=== PATIENT | female | born 1960 | race Hispanic/Latino ===

== ENCOUNTER → 2018-12-02 | Outpatient (CLI) | payer OTHER ==
[~2018-12-02] MED LIST: LEVOTHYROXINE25 MCG PO
--- NOTE | 2018-12-02 16:30 | Diagnostic Imaging Report ---
Neck ultrasound. History: Neck fullness, prior sternotomy. Comparison: None available. Discussion: Transverse and longitudinal sonographic images of the neck were obtained. There is no evidence of residual thyroid tissue, cyst, or solid mass. There is no adenopathy. IMPRESSION: No abnormality identified. Signed by: Amos Park on 12/02/2018 4:26 PM
--- NOTE | 2018-12-02 16:39 | Diagnostic Imaging Report ---
Exam: Bone mineral density study. History: 58-year-old female. Comparison: None available. Discussion: Evaluation of the left hip and lumbar spine was performed utilizing DEXA Hologic bone densitometer. The study is technically adequate. The patient's fracture risk is compared to an age-matched control. Left femoral neck bone mineral density: 0.673 g/cm2, T-score is -1.7, Z-score is -0.5. No previous comparison. Lumbar spine total bone mineral density: 0.843 gm/cm2, T-score is -1.9, Z-score is -0.6. No previous comparison. Impression: Bone mineralization by WHO Classification using T score is osteopenic, fracture risk is moderate. 10 year major osteoporotic fracture risk is 3.9 %. <T score: NL = -1 or higher Osteopenia = -1 to -2.5 Osteoporosis = -2.5 or lower Z score: < - 1.5 concerning for path> Recommendations: Medical evaluation for secondary causes of low bone mineral density may be appropriate. Correlate clinically for the necessity and timing of the next bone mineral density study. National Osteoporosis Foundation recommendations: Initiate therapy to reduce fracture risk in postmenopausal women with -BMD t-scores below -2 by central DXA with no risk factors -BMD t-scores below -1.5 by central DXA with one or more risk factors (first deg relative with hip fracture, prior personal fracture, low body weight, smoking) -A prior vertebral or hip fracture AACE (Clinical Endocrinology) recommends treating the following: Postmenopausal women who have osteoporosis as diagnosed by fragility fractures or t scores -2.5 or below Postmenopausal women who have risk factors (including fh of hip fracture, low body weight, smoking, risk of falling, high bone turnover, advancing age) and borderline low BMD T scores of -1.5 or below Adequate intake of calcium (at least 1200mg/day) and vitamin D (400-800 IU/day). Regular weight bearing and muscle - strengthening exercises Avoid smoking and excessive alcohol Signed by: Amos Park on 12/02/2018 4:36 PM
== END ==
LOC: MAMMO 13:53
PROVIDERS: ATTEND Family Medicine
DX: R22.1 Localized swelling, mass and lump, neck (principal)
CPT/HCPCS: 76536; 77067; 77080

== ENCOUNTER 2019-10-11 17:00 | Emergency (ER) | payer OTHER ==
[~2019-10-11] VITALS: Ht 154.9 cm; Wt 49.9 kg
[2019-10-11] MEDS ORDERED: SODIUM CHLORIDE FLUSH 10 ML SYR INJ PRN (17:15)
--- OUTSIDE RECORDS SUMMARY | 2019-10-11 17:38 | XMS REPORT | Continuity of Care Document ---
Author Author [facility] t Organization [facility] Address [address] [place] [address] Phone Unavailable Care Team Providers Care Cement Tester Assistant Name Role Phone SULTANA CHAVEZ Unavailable Payers Payer Name Policy Type Policy Number Effective Date Expiration Date S ource Problems This patient has no known problems. Allergies, Adverse Reactions, Alerts This patient has no known allergies or adverse reactions. Medications This patient has no known medications. Procedures This patient has no known procedures. Results Test Description Test Time Test Comments Results Result Comments Source - XR ABD ACUTE W/CHEST 2019-01-29 15:46:00 Patie nt Name: DEMI NAQVI Unit No: [id number] EXAMS: CPT CODE: [id number] XR ABD ACUTE W/CHEST 32091 Indication: K59.00/CONSTIPATION Comparison: None. Location: W1 UPRIGHT AP CHEST: The heart size is normal with a mildly elongated aorta. The lungs are grossly clear. No acute infiltrates or pleural effusions are visible. Bones intact. No free air seen. There are postsurgical changes along the lower neck. FLAT AND UPRIGHT ABDOMEN: Bowel gas pattern is unremarkable. Fecal retention is seen throughout the colon. No dilated loops of small bowel visible. No suspicious air-fluid levels seen. No pathologic calcifications or significant osseous lesions visible. No masses detected. No radiopaque from body seen. IMPRESSION: 1. Constipation. 2. No acute cardiopulmonary findings seen. 3. Normal bowel gas pattern. at 154 Reported and signed by: Hernesto Gillis MD CC: Live Worley MD Technologist: Lina Delgado Trscr Dt/Tm: 01/29/2019 (1546) by:[email or web address] Printed Date/Time: 01/29/2019 (2022) Name: DEMI NAQVI [facility] OP Imaging Phys: COLRO.Navya - Live Worley MD : 1960 Age: 59 Sex: F [place] Loc: P.RAD Exam Date: 01/29/2019 Status: REG CLI PH: FAX: PAGE 1 Signed Report BONE DXA DUAL ENERGY 2018-12-02 16:35:00 [place] [address] Patient Name: DEMI NAQVI MR #: [id number] : 1960 Age/Sex: 58/F Req #: [id number] Adm Physician: Ordered by: SULTANA CHAVEZ DO Report #: [id number] Location: [facility] Room/Bed: Procedure: [id number] DX/BONE DXA DUAL ENERGY Exam Date: Exam Time: REPORT STATUS: Signed Exam: Bone mineral density study. History: 58-year-old female. Comparison: None available. Discussion: Evaluation of the left hip and lumbar spine was performed utilizing DEXA Hologic bone densitometer. The study is technically adequate. The patient's fracture risk is compared to an age-matched control. Left femoral neck bone mineral density: 0.673 g/cm2, T-score is -1.7, Z-score is -0.5. No previous comparison. Lumbar spine total bone mineral density: 0.843 gm/cm2, T-score is -1.9, Z-score is -0.6. No previous comparison. Impression: Bone mineralization by WHO Classification using T score is osteopenic, fracture risk is moderate. 10 year major osteoporotic fracture risk is 3.9 %. <T score: NL = -1 or higher Osteopenia = -1 to -2.5 Osteoporosis = -2.5 or lower Z score: < - 1.5 concerning for path> Recommendations: Medical evaluation for secondary causes of low bone mineral density may be appropriate. Correlate clinically for the necessity and timing of the next bone mineral density study. National Osteoporosis Foundation recommendations: Initiate therapy to reduce fracture risk in postmenopausal women with -BMD t-scores below -2 by central DXA with no risk factors -BMD t-scores below -1.5 by central DXA with one or more risk factors (first deg relative with hip fracture, prior personal fracture, low body weight, smoking) -A prior vertebral or hip fracture AACE (Clinical Endocrinology) recommends treating the following: Postmenopausal women who have osteoporosis as diagnosed by fragility fractures or t scores -2.5 or below Postmenopausal women who have risk factors (including fh of hip fracture, low body weight, smoking, risk of falling, high bone turnover, advancing age) and borderline low BMD T scores of -1.5 or below Adequate intake of calcium (at least 1200mg/day) and vitamin D (400-800 IU/day). Regular weight bearing and muscle - strengthening exercises Avoid smoking and excessive alcohol Signed by: Amos Park on 12/02/2018 4:36 PM Dictated By: AMOS PARK MD 1636 Transcribed By: AISSATOU on 12/02/18 1636 COPY TO: SULTANA CHAVEZ DO THYROID 2018-12-02 16:26:00 [place] [address] Patient Name: DEMI NAQVI MR #: [id number] : 1960 Age/Sex: 58/F Req #: [id number] [facility] [place]: Ordered by: SULTANA CHAVEZ DO Report #: [id number] Location: [facility] Room/Bed: Procedure: [id number] US/US THYROID Exam Date: 12/02/18 Exam Time: 1441 REPORT STATUS: Signed Neck ultrasound. History: Neck fullness, prior sternotomy. Comparison: None available. Discussion: Transverse and longitudinal sonographic images of the neck were obtained. There is no evidence of residual thyroid tissue, cyst, or solid mass. There is no adenopathy. IMPRESSION: No abnormality identified. Signed by: Amos Park on 12/02/2018 4:26 PM Dictated By: AMOS PARK MD 25 Transcribed By: AISSATOU on 12/02/181625 COPY TO: SULTANA CHAVEZ DO MAMMOGRAPHY DIGITAL SCR BILAT 2018-12-02 14:58:00 [place] [address] Patient Name: DEMI NAQVI MR #: [id number] : 1960 Age/Sex: 58/F Req #: [id number] Adm Physician: Ordered by: SULTANA CHAVEZ DO Report #: [id number] Location: MAMMO Room/Bed: Procedure: [id number] MG/MAMMOGRAPHY DIGITAL SCR BILAT Exam Date: 12/02/18 Exam Time: 1400 REPORT STATUS: Signed #[id number] - [id number] #BILATERAL DIGITAL SCREENING MAMMOGRAM WITH CAD: 12/02/2018 CLINICAL: Routine screening. Comparison is made to exam dated: 02/23/2014 mammogram - [facility]. Current study contains 4 films. There are scattered fibroglandular elements in both breasts. Current study was also evaluated with a Computer Aided Detection (CAD) system. Benign appearing calcifications are noted in the left breast. No significant masses, calcifications, or other findings are seen in either breast. IMPRESSION: BENIGN There is no mammographic evidence of malignancy. A 1 year screening ma mmogram is recommended. The patient will be notified by letter of the results. AMOS delgadillo/edward:12/11/2018 14:40:42 Acute Care Certified Nursing Assistant: Jeanine REYES)(Maggie), [facility] letter sent: Normal Exam Mammogram BI-RADS: 2 Benign Dictated By: AMOS PARK MD 1440 Transcribed By: EDWARD on 12/11/18 1440 COPY TO: SULTANA CHAVEZ DO
[2019-10-11] MEDS ORDERED: ASPIRIN 325 MG TAB PO ONE (17:45)
[2019-10-11] MEDS ORDERED: ASPIRIN 325 MG TAB ONE (18:08)
[2019-10-11] MEDS ORDERED: OMEPRAZOLE40 MG (18:29)
--- NOTE | 2019-10-11 18:59 | NUR ---
Report to EMILI Gomez
--- NOTE | 2019-10-11 19:54 | Diagnostic Imaging Report ---
EXAMINATION: CXR 2 VIEW - HOPD INDICATION: Short of breath, chest pain COMPARISON: None FINDINGS: TUBES and LINES: None. LUNGS: Hyperexpanded lungs. Lungs are clear. No consolidations. PLEURA: No pleural effusion or pneumothorax. HEART AND MEDIASTINUM: The cardiomediastinal silhouette is unremarkable. BONES AND SOFT TISSUES: No acute osseous lesion. Surgical clips in the lower neck. Osseous demineralization. UPPER ABDOMEN: No free air under the diaphragm. IMPRESSION: Hyperexpanded lungs, correlate for obstructive pulmonary disease. Osseous demineralization. Signed by: Nixon Batista DO on 10/11/2019 7:51 PM
[2019-10-11] MEDS ORDERED: ATIVAN1 MG PO (20:17)
--- NOTE | 2019-10-11 20:18 | Emergency Department Note ---
History of Present Illnes History of Present Illness Chief Complaint: palpitation, sob, chest pain History of Present Illness This is a 59 year old female. was doing well until 2 weeks ago then fatigue, ble cramps, then palpitations, sob, cp . then saw pcp twice. 1 day ago pcp called pt and said pt's bloodwork showed that pt was hyperthyroid. pcp told pt decrease amount of levothyroxine, but pt still having symptoms s/p taking med . Historian: Patient Arrival Mode: Car History limited by: condition of the patient Money Market Dealer Required: No Onset (how long ago): week(s) (2) Location: substernal Quality: sharp Radiation: Reports non-radiation Severity: moderate Onset quality: gradual Duration (how long): week(s) (2) Timing of current episode: constant, intermittent Progression: unchanged Chronicity: recurrent Context: Denies recent illness, Denies recent surgery, Denies recent immobilization, Denies recent travel, Denies trauma/injury, Denies new medications, Denies hx of DVT/PE, Denies non-compliance w/ medications Relieving factors: none Exacerbating factors: other (taking thyroid medication) Associated symptoms: Reports denies other symptoms Treatments prior to arrival: none Past Medical/Family History Physician Review I have reviewed the patient's past medical and family history. Any updates have been documented here. Past Medical History Recent Fever: No Clinical Suspicion of Infectio: No New/Unexplained Change in Ment: No Past Medical History: Hypothyroidism, GERD Past Surgical History: None Social History Smoking Cessation: Never Smoker Counseling Performed: No Alcohol Use: None Any Illegal Drug Use: No Physically hurt or threatened: No Other Any Pre-Existing Lines (PICC,: No Review of Systems Review of Systems Constitutional: Reports no symptoms EENTM: Reports no symptoms Cardiovascular: Reports as per HPI Respiratory: Reports as per HPI Gastrointestinal: Reports no symptoms Genitourinary: Reports no symptoms Musculoskeletal: Reports no symptoms Integumentary: Reports no symptoms Neurological: Reports no symptoms Psychological: Reports no symptoms Endocrine: Reports no symptoms Hematological/Lymphatic: Reports no symptoms Review of other systems: All other systems negative Physical Exam Related Data Allergies: Coded Allergies: No Known Allergies (Unverified , 08/14/12) Triage Vital Signs Vital Signs Date Time Temp Pulse Resp B/P (MAP) Pulse Ox O2 Delivery O2 Flow Rate FiO2 10/11/19 17:15 99.7 85 16 143/73 98 Room Air Vital signs reviewed: Yes Physical Exam CONSTITUTIONAL Constitutional: Present well-developed, Present well-nourished, Present other (anxious) HENT HENT: Present normocephalic, Present atraumatic, Present oropharynx clear/moist, Present nose normal HENT L/R: Present left ext ear normal, Present right ext ear normal EYES Eyes: Reports PERRL, Reports conjunctivae normal NECK Neck: Present ROM normal PULMONARY Pulmonary: Present effort normal, Present breath sounds normal CARDIOVASCULAR Cardiovascular: Present regular rhythm, Present heart sounds normal, Present capillary refill normal, Present normal rate GASTROINTESTINAL Abdominal: Present soft, Present nontender, Present bowel sounds normal GENITOURINARY Genitourinary: Present exam deferred SKIN Skin: Present warm, Present dry MUSCULOSKELETAL Musculoskeletal: Present ROM normal NEUROLOGICAL Neurological: Present alert, Present oriented x 3, Present no gross motor or sensory deficits PSYCHOLOGICAL Psychological: Present judgement normal, Present other (+anxious) Results Laboratory Lab results reviewed: Yes Laboratory comments cbc/bmp/lft/cardiac enzymes normal Imaging Imaging results reviewed: Yes Impressions cxr wnl Procedures 12 Lead ECG Interpretation ECG Interpretation : ECG: ECG 1 Money Market Dealer: Interpreted by ED physician Date: Oct 11, 2019 Time: 17:16 Prior ECG tracings: reviewed Rhythm: sinus rhythm Rate: normal BPM: 79 QRS axis: normal ST segments normal: Yes T waves normal: Yes Clinical Impression: normal ECG (nsr) Assessment & Plan Medical Decision Making MDM hyperthyroidism, anxiety Assessment & Plan Final Impression: (1) Hyperthyroidism (2) Anxiety Depart Disposition: HOME, SELF-CARE Last Vital Signs Date Time Temp Pulse Resp B/P (MAP) Pulse Ox O2 Delivery O2 Flow Rate FiO2 10/11/19 17:15 99.7 85 16 143/73 98 Room Air Home Meds Active Scripts Lorazepam (ATIVAN) 1 Mg Tablet, 1 MG PO Q8H PRN for ANXIETY, #12 TAB Prov:OSMAN POST 10/11/19 Reported Medications Omeprazole (OMEPRAZOLE) 40 Mg Capsule.dr, DAILY 10/11/19 Levothyroxine Sodium (LEVOTHYROXINE SODIUM) 25 Mcg Tablet, 50 MCG PO DAILY 08/14/12 Medications in the ED Sodium Chloride 10 ml PRN PRN INJ IV SITE FLUSH; Start 10/11/19 at 17:15; Stop 11/10/19 at 17:14 Aspirin 324 mg ONCE ONCE PO ; Start 10/11/19 at 17:45; Stop 10/11/19 at 17:46 Aspirin 325 mg STK-MED ONCE .ROUTE ; Start 10/11/19 at 18:08; Stop 10/11/19 at 18:02; Status DC OSMAN POST Oct 11, 2019 20:18
== END 2019-10-11 20:34 | disposition home or self-care (01) ==
LOC: FSED 17:00
DX: E05.90 Thyrotoxicosis, unspecified without thyrotoxic crisis or storm (principal); F41.9 Anxiety disorder, unspecified; K21.9 Gastro-esophageal reflux disease without esophagitis
CPT/HCPCS: 71046; 80076; 81003; 82553; 84484; 85025; 93005; 99284

== ENCOUNTER → 2019-11-18 | Outpatient (CLI) | payer OTHER ==
[~2019-11-18] MED LIST changes: +ATIVAN1 MG PO; +OMEPRAZOLE40 MG
== END ==
LOC: US 10:23
PROVIDERS: ATTEND Family Medicine
DX: R10.32 Left lower quadrant pain (principal)
CPT/HCPCS: 76700; 76856

== ENCOUNTER → 2021-05-02 | Outpatient (CLI) | payer BC | LOC: MAMMO 09:13 | PROVIDERS: ATTEND Internal Medicine | DX: Z12.31 Encounter for screening mammogram for malignant neoplasm of breast (principal) | CPT/HCPCS: 77067 ==

== ENCOUNTER 2022-11-21 08:43 | Outpatient (RCR) | payer OTHER | END 2022-12-19 | LOC: PT 08:43 | PROVIDERS: ATTEND Nurse Practitioner Family | DX: Z47.89 Encounter for other orthopedic aftercare (principal); M25.561 Pain in right knee; M25.661 Stiffness of right knee, not elsewhere classified; M62.81 Muscle weakness (generalized) ==

== ENCOUNTER 2023-06-13 16:53 | Outpatient (RCR) | payer BC ==
[~2023-06-13 16:53] MED LIST changes: +ESTROGEN PATCH
== END 2023-06-19 ==
LOC: PT 16:53
PROVIDERS: ATTEND Orthopaedic Surgery
DX: S83.232A Complex tear of medial meniscus, current injury, left knee, initial encounter (principal)

== ENCOUNTER 2023-08-13 14:00 | Outpatient (RCR) | payer BC | END 2023-08-19 | LOC: PT 14:00 | PROVIDERS: ATTEND Orthopaedic Surgery | DX: S83.232A Complex tear of medial meniscus, current injury, left knee, initial encounter (principal) ==

== ENCOUNTER 2023-09-18 13:51 | Outpatient (RCR) | payer BC | END 2023-09-19 | LOC: PT 13:51 | PROVIDERS: ATTEND Orthopaedic Surgery | DX: S83.232A Complex tear of medial meniscus, current injury, left knee, initial encounter (principal) ==